=== PATIENT | female | born 1995 | race Caucasian/White ===

== ENCOUNTER 2017-10-12 17:19 | Emergency (ER) | payer BC ==
[~2017-10-12] VITALS: Ht 167.6 cm; Wt 91.6 kg
[~2017-10-12 17:19] MED LIST: AGM875T PO; DAPS25TA2 PO; METR500T PO; NITR-65 PO; ONDAN4ODT PO; PHEN37.555 PO; PNT40TEC PO; SULF-222 PO; TRAM50TA2 PO
--- OUTSIDE RECORDS SUMMARY | 2017-10-12 17:25 | XMS REPORT | Continuity of Care Document ---
Author Author [facility] Address Unknown Phone Unavailable Allergies Active Description Code Type Severity Reaction Onset Reported/Identified Relationship to Patient Clinical Status Yes No Known Drug Allergies [id number] Drug Allergy Unknown N/ A 05/01/2011 Medications Problems Date Dx Coded Attending Type Code Diagnosis Diagnosed By 08/16/2009 BLADIMIR SALDAÑA APRN 309.28 AD ADJ D/O W ANX DEP MOOD 05/02/2011 Ot 789.03 07/26/2011 BLADIMIR SALDAÑA APRN V72.41 TEST NEGATIVE RESULT 06/05/2012 Ot 599.0 URIN TRACT INFECTION NOS 06/05/2012 Ot 620.2 OVARIAN CYST NEC/NOS 06/05/2012 Ot 789.09 ABDOMINAL PAIN, OTHER SPECIFIED SITE 06/27/2012 Ot 599.0 URIN TRACT INFECTION NOS 06/27/2012 Ot 789.09 ABDOMINAL PAIN, OTHER SPECIFIED SITE 02/04/2014 BLADIMIR SALDAÑA APRN V70.5 EXAM - PRE-EMPLOYMENT 12/01/2014 DEBORAH YADAV Ot 682.6 CELLULITIS OF LEG 12/01/2014 DEBORAH YADAV Ot 916.5 INSECT BITE HIP/LEG-INF 12/01/2014 DEBORAH YADAV Ot E000.8 OTHER EXTERNAL CAUSE STATUS 12/01/2014 DEBORAH YADAV Ot E849.0 ACCIDENT IN HOME 12/01/2014 DEBORAH YADAV Ot E906.4 NONVENOM ARTHROPOD BITE 06/19/2015 ELSY SANCHES APRN Ot 461.0 AC MAXILLARY SINUSITIS 06/19/2015 ELSY SANCHES APRN Ot 462 ACUTE PHARYNGITIS 06/19/2015 ELSY SANCHES APRN Ot 780.60 FEVER, UNSPECIFIED Procedures Code [place] [address] TB TEST INTRADERMAL 02/04/2014 44831 URINE DRUG SCREEN (IN-HOUSE) 02/04/2014 Results Encounters ACCT No. Visit Date/Time Discharge Status Pt. Type Provider Facility Loc./Unit Complaint [id number] 02/04/2014 13:12:00 02/04/2014 23: 59:59 CLS Outpatient BLADIMIR SALDAÑA APRN [id number] 06/19/2015 20:52:00 2014 21:09:00 DIS Emergency ELSY SANCHES APRN [facility] ER FEVER;SORE THROAT [id number] 12/01/2014 18:21:00 2014 19:27:00 DIS Emergency DEBORAH YADAV [facility] ER L LEG ABCESS [id number] 10/12/2017 17:21:00 ACT Emergency SEBASTIAN ZURITA MD [facility] ER R FOOT INJ [id number] 06/27/2012 12:03:00 Document Registration [id number] 06/05/2012 04:14:00 Document Registration [id number] 05/01/2011 22:26:00 Document Registration
--- NOTE | 2017-10-12 18:05 | ED Lower Extremity ---
General Stated Complaint: R FOOT INJ Source: patient Exam Limitations: no limitations History of Present Illness Time seen by provider: 18:04 Initial Comments Ambulatory to ER without use of assistive device with reports of right lateral foot pain and swelling since last night. She was leaving the bar and did not have any shoes on. She went to give her friend, the friend fell and is believed to have landed on the lateral aspect of the right foot. Onset: just prior to arrival Severity: moderate Pain/Injury Location: right foot Method of Injury: fell Modifying Factors: Worse With Movement Allergies and Home Medications Allergies Coded Allergies: No Known Drug Allergies (Unverified , 05/01/11) Home Medications Amoxicillin/Clavulanate K 875 Mg Tab, 1 TAB PO BID, #14 Prescribed by: ELSY SANCHES on 06/19/152101 Constitutional: see HPI EENTM: see HPI Respiratory: no symptoms reported Cardiovascular: no symptoms reported Genitourinary: no symptoms reported Musculoskeletal: see HPI Skin: no symptoms reported Psychiatric/Neurological: No Symptoms Reported Past Tfzsuoh-Irmhjv-Jxymat Hx Patient Social History Recent Foreign Travel: No Contact w/Someone Who Travel: No Immunizations Up To Date Tetanus Booster (TDap): Unknown Seasonal Allergies Seasonal Allergies: Yes Surgeries Surgeries: Tonsillectomy Reproductive System Female Reproductive Disorders: Ovarian Cyst Physical Exam Vital Signs Vital Sign - Last 12Hours 10/12/17 18:05 Temp 97.6 Pulse 74 Resp 16 B/P (MAP) 138/76 Pulse Ox 99 O2 Delivery Room Air Capillary Refill : General Appearance: WD/WN, no apparent distress HEENT: PERRL/EOMI, normal ENT inspection Neck: non-tender, full range of motion Respiratory: no respiratory distress, no accessory muscle use Hips: bilateral hip non-tender, bilateral hip normal inspection, bilateral hip normal range of motion Legs: bilateral leg non-tender, bilateral leg normal inspection, bilateral leg normal range of motion Knees: bilateral knee non-tender, bilateral knee normal inspection, bilateral knee normal range of motion Ankles: bilateral ankle non-tender, bilateral ankle normal inspection, bilateral ankle normal range of motion Feet: right foot ecchymosis, right foot pain, right foot soft tissue tenderness , right foot swelling Neurologic/Psychiatric: alert, normal mood/affect, oriented x 3 Skin: normal color, warm/dry Progress/Results/Core Measures Results/Orders My Orders Orders - ELSY SANCHES APRN Foot, Right, 3 View (10/12/17 18:03) Vital Signs/I&O Vital Sign - Last 12Hours 10/12/17 18:05 Temp 97.6 Pulse 74 Resp 16 B/P (MAP) 138/76 Pulse Ox 99 O2 Delivery Room Air Departure Impression Impression: Primary Impression: Contusion of foot Disposition: HOME, SELF-CARE Condition: Stable Departure-Patient Inst. Decision time for Depature: 18:16 Referrals: CHRISTIANA HUGHES MD (PCP/Family) Primary Care Physician Patient Instructions: Contusion (DC) Add. Discharge Instructions: 1. Return to ER for any concerns 2. Elevate the foot as much as possible for the rest of today and tonight. Put an ice pack over this area to help reduce swelling. Tylenol and Motrin for pain Crutches as needed when walking. When you're able to bear weight without pain and you may stop using the crutches. Images Extremities-Lower 1 - Ecchymosis, Tenderness ELSY SANCHES APRN Oct 12, 2017 18:05
--- NOTE | 2017-10-12 18:31 | Diagnostic Imaging Report ---
EXAM: FOOT, RIGHT, 3 VIEW INDICATION: Right foot trauma. Right foot pain. COMPARISON: None. FINDINGS: No fracture or malalignment. Soft tissue shadows are unremarkable. IMPRESSION: Negative right foot radiographs. Dictated by: Dictated on workstation # [id number]
[2017-10-12 19:20] VITALS: BP 138/76
== END 2017-10-12 19:20 | disposition home or self-care (01) ==
LOC: EDUNIT# 17:19 → ER 17:21
DX: S90.31XA Contusion of right foot, initial encounter (principal); Z90.89 Acquired absence of other organs; Z87.42 Personal history of other diseases of the female genital tract; W18.30XA Fall on same level, unspecified, initial encounter; Y92.511 Restaurant or cafe as the place of occurrence of the external cause
CPT/HCPCS: 73630; 99283

== ENCOUNTER → 2020-05-18 | Outpatient (CLI) | payer BC | LOC: LABNPT 06:50 | PROVIDERS: ATTEND Family Medicine | DX: U07.1 COVID-19 (principal); R51 Headache | CPT/HCPCS: 87635 ==

== ENCOUNTER → 2021-04-17 | Outpatient (CLI) | payer BC ==
--- NOTE | 2021-04-17 08:44 | Diagnostic Imaging Report ---
INDICATION: Right upper quadrant abdominal pain. TECHNIQUE: Multiple grayscale sonographic images were obtained of the right upper quadrant of the abdomen. CORRELATION STUDY: None. FINDINGS: LIVER: There is uniform echotexture within the visualized portions of the liver. There is normal, hepatopetal direction of flow within the main portal vein. The liver length is 15.1 cm. GALLBLADDER: An approximately 16 mm gallstone is present. There is gallbladder wall thickening up to 6 mm. Gallbladder is somewhat contracted. Sonographic Garza sign was reported as negative. COMMON BILE DUCT: Upper limits of normal at 0.6 cm. PANCREAS: Visualized portions appearing unremarkable. AORTA/IVC: Not well visualized. RIGHT KIDNEY: 10.2 x 5.2 x 5.8 cm. No hydronephrosis. OTHER: None. IMPRESSION: Cholelithiasis. There is gallbladder wall thickening but may be accentuated by contracture. Common bile duct is also upper limits of normal. Given the overall findings, developing acute cholecystitis is not excluded; however, the sonographic Garza sign was reported as negative. If further assessment is desired, a HIDA scan would be recommended. Dictated by: Dictated on workstation # [id number]
== END ==
LOC: RAD 07:25
PROVIDERS: ATTEND Nurse Practitioner Family
DX: K80.10 Calculus of gallbladder with chronic cholecystitis without obstruction (principal); K82.8 Other specified diseases of gallbladder
CPT/HCPCS: 76705